=== PATIENT | female | born 1980 | race Asian ===

== ENCOUNTER → 2021-05-30 | Outpatient (REF) | payer BC ==
[2021-05-30 16:59] LABS: BASO % 0.5 % (0.0-1.0); EOS # 0.2 10^3/uL (0.0-0.5); EOS % 2.1 % (0.0-3.0); HEMATOCRIT 47.3 % (36.0-47.0); HEMOGLOBIN 15.5 g/dl (12.0-15.5); LYMPH # 2.8 10^3/uL (1.5-5.0); LYMPH % 32.9 % (24.0-44.0); MEAN CORPUSCULAR HEMOGLOBIN 29.6 pg (27.0-33.0); MEAN CORPUSCULAR HGB CONC 32.8 g/dl (32.0-36.5); MEAN CORPUSCULAR VOLUME 90.3 fl (80.0-96.0); MONO # 0.6 10^3/uL (0.0-0.8); MONO % 6.9 % (2.0-8.0); NEUTROPHILS # 4.9 10^3/uL (1.5-8.5); NEUTROPHILS % 57.2 % (36.0-66.0); PLATELET COUNT, AUTOMATED 331 10^3/uL (150-450); RED BLOOD COUNT 5.24 10^6/uL (4.00-5.40); WHITE BLOOD COUNT 8.5 10^3/uL (4.0-10.0)
[2021-05-30 17:00] LABS: APPEARANCE, URINE TURBID (CLEAR); BACTERIA, URINE AUTO 2+ (NEGATIVE); BILIRUBIN, URINE AUTO NEGATIVE (NEGATIVE); BLOOD, URINE BLOOD 2+ (NEGATIVE); COLOR, URINE YELLOW (YELLOW); GLUCOSE, URINE (UA) AUTO NEGATIVE (NEGATIVE); KETONE, URINE AUTO NEGATIVE (NEGATIVE); LEUKOCYTE ESTERASE, URINE AUTO TRACE (NEGATIVE); MUCUS, URINE SMALL (NEGATIVE); NITRITE, URINE AUTO POSITIVE (NEGATIVE); PROTEIN, URINE AUTO NEGATIVE (NEGATIVE); RBC, URINE AUTO 0 /HPF (0-3); SPECIFIC GRAVITY URINE AUTO 1.023 (1.002-1.035); SQUAMOUS EPITHELIAL CELL UR AU 7 /HPF (0-6); UROBILINOGEN, URINE AUTO 0.2 mg/dL (0.0-2.0); WBC, URINE AUTO 2 /HPF (0-3)
[2021-05-30 17:22] LABS: C REACTIVE PROTEIN QUANTITATIV 1.26 MG/DL (0.00-0.30); COMPLEMENT C3 155 MG/DL (90-180); COMPLEMENT C4 24 MG/DL (10-40); IRON (FE) 153 UG/DL (50-170)
[2021-05-30 17:26] LABS: TOTAL PROTEIN,RANDOM URINE 18.4 MG/DL (0.0-12.0)
[2021-05-30 17:32] LABS: HEPATITIS B SURFACE ANTIBODY POSITIVE (POSITIVE); TOTAL 25(OH) VITAMIN D 20.1 NG/ML (30.0-100.0)
[2021-05-30 17:44] LABS: HEPATITIS B SURFACE ANTIGEN NEGATIVE (NEGATIVE)
[2021-05-30 18:42] LABS: ERYTHROCYTE SEDIMENTATION RATE 43 mm/hr (0-20)
[2021-05-31 08:53] LABS: DRVV SCREEN 39.1 SEC
== END ==
LOC: M SFHCRHEU 14:13
PROVIDERS: ATTEND Internal Medicine
DX: R76.8 Other specified abnormal immunological findings in serum (principal); Z11.59 Encounter for screening for other viral diseases; R70.0 Elevated erythrocyte sedimentation rate; R79.82 Elevated C-reactive protein (CRP); R53.82 Chronic fatigue, unspecified

== ENCOUNTER → 2021-07-04 | Outpatient (CLI) | payer BC | LOC: M SLEEP HO 12:37 | PROVIDERS: ATTEND Internal Medicine | DX: R53.82 Chronic fatigue, unspecified (principal) ==

== ENCOUNTER → 2021-08-19 | Outpatient (CLI) | payer BC ==
--- NOTE | 2021-08-19 17:21 | REP ---
INDICATION: ESSENTIAL (PRIMARY) HYPERTENSION- EKG FIRST. COMPARISON: None. FINDINGS: The superior mediastinal structures are midline. The cardiac silhouette is unremarkable in size and position. There is a mild left ventricular configuration. The diaphragmatic surfaces of the lungs are regular, and the costophrenic angles are clear. The pulmonary jimenez are clear. The imaged osseous structures are intact. IMPRESSION: There is no acute cardiopulmonary disease. <Electronically signed by Constantino Drew > 08/19/21 [id number]
--- NOTE | 2021-08-20 06:55 | ECGEPIP ---
[facility] Test Date: 2021-08-19 Pat Name: ANURAG HAMILTON Department: Room: - Gender: Female Satellite Manager: santos : 1979-12-14 Requested By: Nick Leiva Order Number: [id number] Reading MD: Yessi Peters Measurements Intervals [place] Rate: 93 P: 45 MS: 184 QRS: 20 QRSD: 84 T: 30 QT: 350 QTc: 435 Interpretive Statements Normal sinus rhythm Low voltage QRS IRBBB Nonspecific T wave abnormality NO PRIOR Electronically Signed on 08-20-2021 6:54:56 EST by Yessi Peters
== END ==
LOC: M EKG 16:49
PROVIDERS: ATTEND Surgery
DX: I10 Essential (primary) hypertension (principal)